=== PATIENT | male | born 1990 | race Two or more races ===

== ENCOUNTER 2016-09-23 20:42 | Emergency (ER) | payer SELFPAY ==
--- NOTE | 2016-09-23 21:11 | NUR ---
CALLED FOR TRIAGE X3; NO ANSWER. INFORMED BY ADMITTING "PT LEFT"
== END 2016-09-23 21:12 | disposition left against medical advice (07) ==
LOC: ER 20:46
DX: Z53.21 Procedure and treatment not carried out due to patient leaving prior to being seen by health care provider (principal)

== ENCOUNTER 2016-09-25 08:12 | Emergency (ER) | payer SELFPAY ==
[~2016-09-25] VITALS: Ht 180.3 cm; Wt 90.7 kg
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
[2016-09-25] MEDS ORDERED: TDAP [DIPH/PERTUSSIS/TET] 0.5 ML VIAL IM ONE (08:46)
[2016-09-25] MEDS: TDAP [DIPH/PERTUSSIS/TET] 0.5 ML VIAL IM ONE (08:51)
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
--- NOTE | 2016-09-25 10:54 | NUR ---
PT. VERBALIZED UNDERSTANDING OF AFTERCARE INSTRUCTIONS.Patient discharged to home in stable condition. Written and verbal after care instructions given. Patient verbalizes understanding of instruction.
[2016-09-25 10:55] VITALS: BP 140/105
== END 2016-09-25 10:55 | disposition home or self-care (01) ==
LOC: ER 08:13
DX: S61.210A Laceration without foreign body of right index finger without damage to nail, initial encounter (principal); W25.XXXA Contact with sharp glass, initial encounter; Y93.89 Activity, other specified; Y92.89 Other specified places as the place of occurrence of the external cause; Y99.9 Unspecified external cause status
CPT/HCPCS: 12001; 73130; 90471; 90715; 99284; A4606; A6402; A6403; Z7610

== ENCOUNTER 2016-10-30 19:51 | Emergency (ER) | payer SELFPAY ==
[~2016-10-30] VITALS: Ht 180.3 cm; Wt 95.3 kg
[2016-10-30 20:27] VITALS: BP 147/71
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
--- NOTE | 2016-10-30 20:40 | NUR ---
PAC GONZALES AT BEDSIDE FOR EVAL.
--- NOTE | 2016-10-30 20:45 | NUR ---
[employer] AT BEDSIDE
[2016-10-30] MEDS ORDERED: ACETAMINOPHEN ES 500 MG TABLET ONE (20:54)
--- NOTE | 2016-10-30 20:59 | NUR ---
XRAY AT BEDSIDE
[2016-10-30] MEDS ORDERED: ACETAMINOPHEN ES 500 MG TABLET PO ONE (21:00)
[2016-10-30] MEDS ORDERED: LIDOCAINE HCL/PF 1% 30 ML VIAL IM ONE (21:00)
--- NOTE | 2016-10-30 21:40 | NUR ---
PAC JANET Villatoro BEDSIDE FOR LAC REPAIR
== END 2016-10-30 22:24 | disposition home or self-care (01) ==
LOC: ER 19:54
DX: S01.511A Laceration without foreign body of lip, initial encounter (principal); S60.221A Contusion of right hand, initial encounter; Y04.2XXA Assault by strike against or bumped into by another person, initial encounter; Y93.89 Activity, other specified; Y92.89 Other specified places as the place of occurrence of the external cause; Y99.9 Unspecified external cause status
CPT/HCPCS: 12013; 29125; 73120; 99284; A4606; A6402; J3490; Z7610